=== PATIENT | female | born 1985 | race American Indian/Alaskan Native ===

== ENCOUNTER 2017-02-11 07:09 | Outpatient (CLI) | payer MEDICAID ==
--- NOTE | 2017-02-11 08:16 | Ultrasound Report ---
RIGHT BREAST ULTRASOUND: 02/11/17 07:09:00 CLINICAL: 31-year-old with a palpable lump right breast. COMPARISON: 02/28/09 FINDINGS: Ultrasound of the right breast demonstrated a superficial oval hypoechoic nontender mass at 10 o'clock 7 cm from the nipple.It is contiguous to the skin, demonstrates posterior enhancement and has internal echoes. IMPRESSION: A probable benign complex cyst or sebaceous cyst at 10 o'clock 7 cm from the nipple. Recommend three-month followup with ultrasound. BI-RADS 3 - - Probably Benign
== END 2017-02-11 07:10 | disposition home or self-care (01) ==
LOC: US 07:09
PROVIDERS: ATTEND Nurse Practitioner Gerontology
DX: N63.10 Unspecified lump in the right breast, unspecified quadrant (principal)